=== PATIENT | male | born 1995 | race Caucasian/White ===

== ENCOUNTER 2017-01-07 01:31 | Emergency (ER) | payer OTHER ==
[~2017-01-07] VITALS: Ht 172.7 cm; Wt 80.0 kg
[2017-01-07 01:32] VITALS: BP 142/84; PULSE 74; RESP 14; TEMP 98.2; O2SAT 98
--- NOTE | 2017-01-07 03:11 | PD ---
HPI . Palpitations Chief Complaint: Cardiac Complaint Time Seen by Provider: 03:05 Travel History International Travel<30 days: No Contact w/Intl Traveler<30days: No Traveled to known affect area: No History of Present Illness HPI Patient presents with a couple of episodes of palpitations tonight. He states that it happened twice and he decided he had best come and get checked out. He denies any associated symptoms. PFSH Past Medical History Medical other: Yes (states compartment syndrome in legs due to working out.) Tetanus Vaccination: < 5 Years Influenza Vaccination: Yes Past Surgical History Surgical History: No Previous Surgery Social History Alcohol Use: Yes (rare) Tobacco Use: No Substance Use: Yes (marijuana occ) Allergies-Medications (Allergen,Severity, Reaction): Coded Allergies: UNOBTAINABLE (Unverified , 01/07/17) can't remember Reported Meds & Prescriptions Reported Meds & Active Scripts Active No Active Prescriptions or Reported Medications Review of Systems Except as stated in HPI: all other systems reviewed are Neg General / Constitutional: Positive: Other (no diaphoresis) Cardiovascular: Positive: Palpitations, No: Chest Pain or Discomfort Respiratory: No: Shortness of Breath Gastrointestinal: No: Nausea Physical Exam Narrative GENERAL: Healthy-appearing young man in no acute distress. SKIN: Warm and dry. HEAD: Atraumatic. Normocephalic. EYES: Pupils equal and round. ENT: No nasal bleeding or discharge. Mucous membranes pink and moist. NECK: Trachea midline. CARDIOVASCULAR: Regular rate and rhythm. Heart sounds are normal. RESPIRATORY: No accessory muscle use. Lungs are clear. GASTROINTESTINAL: Abdomen soft, non-tender, nondistended. MUSCULOSKELETAL: No obvious deformities. No edema. NEUROLOGICAL: Awake and alert. No obvious cranial nerve deficits. Motor grossly within normal limits. Normal speech. PSYCHIATRIC: Appropriate mood and affect; insight and judgment normal. Data Data Last Documented VS Vital Signs Date Time Temp Pulse Resp B/P Pulse Ox O2 Delivery O2 Flow Rate FiO2 01/07/17 01:32 98.2 74 14 142/84 98 Room Air Orders Electrocardiogram (01/07/17 01:40) MDM Medical Decision Making Medical Screen Exam Complete: Yes Emergency Medical Condition: Yes Interpretation(s) EKG shows a normal sinus rhythm with no acute ischemic changes. No PVCs noted on this tracing. Differential Diagnosis Differential diagnosis of palpitations includes but is not limited to anxiety, SVT, aVF with RVR, VT, sinus tachycardia Narrative Course Patient presents for evaluation of palpitations. He had no associated symptoms. His EKG is normal. It sounds like he probably had a couple of PVCs. Diagnosis Primary Impression: Palpitations Scripts No Active Prescriptions or Reported Meds Disposition: 01 DISCHARGE HOME Condition: Stable Kelly Aviles MD Jan 07, 2017 03:11
[2017-01-07 03:29] VITALS: BP 136/84; PULSE 74; RESP 18; O2SAT 98
--- NOTE | 2017-01-07 16:45 | EKG ---
Date Performed: 01/07/2017 Time Performed: 01:48:29 PTAGE: 21 years EKG: Sinus rhythm MODERATE INTRAVENTRICULAR CONDUCTION DELAY BORDERLINE ECG NO PREVIOUS TRACING DOCTOR: Ike Melvin Interpretating Date/Time 01/07/2017 16:42:24
== END 2017-01-07 04:04 | disposition home or self-care (01) ==
LOC: NEPE 01:31
DX: R00.2 Palpitations (principal); R94.31 Abnormal electrocardiogram [ECG] [EKG]; F12.90 Cannabis use, unspecified, uncomplicated
CPT/HCPCS: 93005